=== PATIENT | female | born 1945 | race Caucasian/White ===

== ENCOUNTER → 2018-05-26 | Outpatient (CLI) | payer MEDICARE | LOC: M SLEEP 19:35 | DX: G47.30 Sleep apnea, unspecified (principal) | CPT/HCPCS: 95810 ==

== ENCOUNTER → 2018-06-19 | Outpatient (CLI) | payer MEDICARE | LOC: M SLEEP 19:02 | DX: G47.33 Obstructive sleep apnea (adult) (pediatric) (principal) | CPT/HCPCS: 95811 ==

== ENCOUNTER → 2019-05-07 | Outpatient (CLI) | payer MEDICARE ==
[~2019-05-07] MED LIST: LIDOCAINE 1% MDV 20ML VIAL As Ordered ONE
--- NOTE | 2019-05-07 13:18 | REP ---
POSTBIOPSY MAMMOGRAM, LEFT BREAST: Following stereotactic biopsy of the left breast at two locations for clustered microcalcifications, one medially and one laterally, ML and CC views of the left breast are performed to evaluate clip placement. A metallic marking clip is seen at the site of each cluster of microcalcifications. At both sites, multiple calcifications are no longer visualized. Electronically Signed by Dannie Zamudio MD 05/07/2019 05:16 P
--- NOTE | 2019-05-07 17:18 | REP ---
Stereotactic breast biopsy. This procedure is performed by OCTAVIANO Su, under the personal supervision of Dr. Zamudio. The patient has a history of suspicious grouping of microcalcifications in the left breast in two separate locations, one medially and one laterally, on an outside mammogram dated 03/25/2019. The risks and benefits of the procedure were explained to the patient and informed consent was obtained both verbally and written. Directly prior to the start of the procedure, a formal timeout was done in the procedure room. The cranial caudal approach was utilized. The lateral grouping of calcifications were localized using stereotactic mammographic guidance. 6 ml of 1% lidocaine was used as a local anesthetic. And 8-gauge, suction assisted Mammotome needle was inserted and 6 core biopsy samples were obtained. Specimen radiograph demonstrate the presence of microcalcifications to be within the specimen. A marker clip was placed at the biopsy site. The needle was removed and homeostasis was achieved. The patient tolerated the procedure well and there were no immediate complications. After the appropriate amount of monitored convalescence, the patient was discharged from the department. Impression: Technically successful stereotactic breast biopsy of the left breast, lateral grouping of microcalcifications. Reviewed by OCTAVIANO Harley 05/07/2019 01:52 P Electronically Signed by Dannie Zamudio MD 05/07/2019 05:11 P
--- NOTE | 2019-05-07 17:20 | REP ---
Stereotactic breast biopsy. This procedure is performed by OCTAVIANO Su, under the personal supervision of Dr. Zamudio. The patient has a history of suspicious grouping of microcalcifications in the left breast in two separate locations, one medially and one laterally, on an outside mammogram dated 03/25/2019. The risks and benefits of the procedure were explained to the patient and informed consent was obtained both verbally and written. Directly prior to the start of the procedure, a formal timeout was done in the procedure room. The cranial caudal approach was utilized. The medial calcifications were localized using stereotactic mammographic guidance. 6 ml of 1% lidocaine was used as a local anesthetic. And 8-gauge, suction assisted Mammotome needle was inserted and 6 core biopsy samples were obtained. Specimen radiograph demonstrate the presence of microcalcifications to be within the specimen. A marker clip was placed at the biopsy site. The needle was removed and homeostasis was achieved. The patient tolerated the procedure well and there were no immediate complications. After the appropriate amount of monitored convalescence, the patient was discharged from the department. Impression: Technically successful stereotactic breast biopsy of the left breast, medial grouping of microcalcifications. Reviewed by OCTAVIANO Harley 05/07/2019 01:49 P Electronically Signed by Dannie Zmaudio MD 05/07/2019 05:12 P
--- NOTE | 2019-05-12 13:56 | REP ---
SPECIMEN RADIOGRAPHY LEFT BREAST: Single view. HISTORY: Patient status post stereotactic needle biopsy for microcalcifications. Comparison mammography March 25, 2019. FINDINGS: Specimen radiography confirms the presence of microcalcifications from the target grouping in one of the removed specimens. IMPRESSION: Specimen radiography confirms removal of microcalcifications from the target specimen. Electronically Signed by Aguilar Ferguson MD 05/12/2019 03:51 P
== END ==
LOC: M RADPRO 10:13
PROVIDERS: ATTEND Surgery
DX: D24.2 Benign neoplasm of left breast (principal)

== ENCOUNTER → 2021-09-26 | Outpatient (CLI) | payer MEDICARE ==
[~2021-09-26] MED LIST changes: +ALDA25TA2 PO; +DULO1CAP4 PO; +ECOT81TA5 PO; +FURO40TA2 PO; +HYDR10TAB PO; +K-TA10TA2 PO; +LEVO125T4 PO; -LIDOCAINE 1% MDV 20ML VIAL As Ordered ONE; +METF500T13 PO; +SIMV20TA22 PO
[2021-09-26 15:02] VITALS: BP 150/74
--- NOTE | 2021-09-26 15:12 | REP ---
INDICATION: U/S GUIDED BX LUMP IN RIGHT BREAST. POST CLIP MAMMO. COMPARISON: 08/14/2021, 08/25/2021. TECHNIQUE: ML and CC views right breast performed with tomosynthesis. FINDINGS: HydroMARK clip is noted at the site of the spiculated nodule in the lower outer right breast following ultrasound-guided biopsy. IMPRESSION: Successful ultrasound-guided biopsy of nodule lower outer right breast with appropriate placement of HydroMARK clip at that location. RECOMMENDATION: Clinical follow-up. <Electronically signed by Dannie Zamudio > 09/26/21 [id number]
--- NOTE | 2021-09-27 17:19 | REP ---
INDICATION: U/S GUIDED BX LUMP IN RIGHT BREAST. POST CLIP MAMMO. COMPARISON: None. TECHNIQUE: The procedure was performed under the direct supervision of Dr. Zamudio. The patient has a history of a hypoechoic shadowing area at the 8 o'clock position of the right breast seen on a previous ultrasound dated 08/25/2021 from [facility]. The risks and benefits of the procedure were explained to the patient and informed consent was obtained. The right breast nodule was localized using ultrasound guidance. The skin was prepped and draped in a sterile fashion. 9 mL of 1% Xylocaine was used as a local anesthetic. Using ultrasound guidance a 14-gauge coaxial needle biopsy system was inserted and6 core biopsy samples were obtained. A marker clip (HydroMark shape 4) was placed at the biopsy site The patient tolerated the procedure well and there were no immediate complications. After the appropriate amount of monitored convalescence, the patient was discharged from the department. EBL: Less than 1 mL FINDINGS: None IMPRESSION: Ultrasound-guided right breast biopsy with marker clip placement. (HydroMark shape 4) <Electronically signed by Dru Beatty > 09/27/21 [id number] <Electronically signed by Dannie Zamudio > 09/27/21 1350
== END ==
LOC: M WHCPRO 08:56
PROVIDERS: ATTEND Family Medicine
DX: C50.511 Malignant neoplasm of lower-outer quadrant of right female breast (principal)

== ENCOUNTER → 2021-10-18 | Outpatient (CLI) | payer MEDICARE ==
[~2021-10-18] MED LIST changes: +AMLO1TAB25 PO; +AMOX875T2 PO; +ARIM1TAB5 PO; +ASPI1CHW3 PO; +D 101000 PO; +DULO1CAP5 PO; +LIDO1CRE42 TOP; +METO1TAB7 PO; +PROL60SO SC; +ROXI1TAB2 PO; +TOUJ1.2I SC
== END ==
LOC: M PLALAB 09:25
PROVIDERS: ATTEND Surgery
DX: Z13.79 Encounter for other screening for genetic and chromosomal anomalies (principal)

== ENCOUNTER → 2021-10-18 | Outpatient (CLI) | payer MEDICARE ==
[2021-10-18 09:01] VITALS: BP 136/84
== END ==
LOC: M WHCPRO 06:43
PROVIDERS: ATTEND Surgery
DX: D24.2 Benign neoplasm of left breast (principal); N63.22 Unspecified lump in the left breast, upper inner quadrant
CPT/HCPCS: 19083; 77065; 88305; G0279

== ENCOUNTER → 2021-10-26 | Outpatient (CLI) | payer MEDICARE ==
[~2021-10-26] MED LIST changes: -ARIM1TAB5 PO; -ASPI1CHW3 PO; -DULO1CAP5 PO; -LIDO1CRE42 TOP; -PROL60SO SC; -ROXI1TAB2 PO
== END ==
LOC: M LABSMTC 10:58
PROVIDERS: ATTEND Anesthesiology
DX: Z01.812 Encounter for preprocedural laboratory examination (principal); Z20.822 Contact with and (suspected) exposure to COVID-19

== ENCOUNTER 2021-10-31 08:19 | Day surgery (SDC) | payer MEDICARE ==
[~2021-10-31] VITALS: Ht 154.9 cm; Wt 74.8 kg
[~2021-10-31 08:19] MED LIST changes: +HEPARIN SOD (PORCINE) 5000UNITS/ML 1ML VIAL/SYRINGE SQ ONE; +LIDOCAINE 1% MDV 20ML VIAL SQ PRN; +LR 1,000 ML IV ONE; +ceFAZolin SOD 2 GM in IV 1 EA IV ONE
[2021-10-31] MEDS ORDERED: LIDOCAINE 2% 100MG/5ML SDV (FOR ANES.) As Ordered ONE (10:56)
[2021-10-31] MEDS ORDERED: propofoL 200 MG/20 ML VIAL As Ordered ONE (10:56)
[2021-10-31] MEDS ORDERED: fentaNYL 100 MCG/2 ML INJECTION As Ordered ONE (10:59)
[2021-10-31] MEDS ORDERED: MIDAZOLAM INJ 2MG/2ML VIAL (J2250 PER 1MG) As Ordered ONE (10:59)
[2021-10-31] MEDS ORDERED: ePHEDrine SULFATE 25 MG/5 ML(5MG/ML) SYRINGE As Ordered ONE ×2 (11:14→14:43)
[2021-10-31] MEDS ORDERED: ROCURONIUM BROMIDE 50 MG/5 ML VIAL As Ordered ONE ×2 (11:16→14:03)
[2021-10-31] MEDS ORDERED: LIDOCAINE 1% SDV 30ML VIAL As Ordered ONE (13:36)
[2021-10-31] MEDS ORDERED: BUPIVACAINE HCL 0.25% 30ML VIAL As Ordered ONE (13:36)
[2021-10-31] MEDS ORDERED: ACETAMINOPHEN 1000MG 100ML IV BTL (OFIRMEV) (J0131 PER 10MG) As Ordered ONE (14:20)
[2021-10-31] MEDS ORDERED: SUGAMMADEX SODIUM 500 MG/5 ML VIAL (BRIDION) As Ordered ONE (14:31)
[2021-10-31] MEDS ORDERED: dexameTHASONE 4 MG/ML 1ML VIAL (J1100 PER 1MG) As Ordered ONE (14:42)
[2021-10-31] MEDS ORDERED: PHENYLephrine 500MCG 5ML (100MCG/ML) SYRINGE As Ordered ONE (15:01)
[2021-10-31] MEDS ORDERED: ONDANSETRON 4MG/2ML VIAL As Ordered ONE (15:01)
[2021-10-31] MEDS ORDERED: LACRILUBE (AKWA TEARS) OPHTH OINT 3.5 GM As Ordered ONE (15:31)
[2021-10-31] MEDS ORDERED: ROXI1TAB2 PO (17:14)
[2021-10-31] MEDS ORDERED: fentaNYL 100 MCG/2 ML INJECTION IV PRN (17:40)
[2021-10-31] MEDS ORDERED: LR 1,000 ML IV SCH (17:40)
[2021-10-31] MEDS ORDERED: ONDANSETRON 4MG/2ML VIAL IV PRN (17:40)
[2021-10-31] MEDS ORDERED: NORCO, ANEXSIA 5/325MG TABLET (HYDROcodone/ACETAMINOPHEN) PO PRN (17:40)
[2021-10-31] MEDS ORDERED: METOCLOPRAMIDE INJ 10MG/2ML VIAL (J2765 PER 1) IV PRN (17:40)
[2021-10-31 18:49] VITALS: BP 127/59
[2021-11-16] MEDS ORDERED: ASPI1CHW3 PO (14:15)
[2021-11-16] MEDS ORDERED: LIDO1CRE42 TOP (14:15)
[2021-11-21] MEDS ORDERED: DULO1CAP5 PO (13:25)
[2021-12-18] MEDS ORDERED: ARIM1TAB5 PO (14:07)
[2021-12-18] MEDS ORDERED: PROL60SO SC (14:08)
== END 2021-10-31 19:51 | disposition home or self-care (01) ==
LOC: M SDC 08:19
PROVIDERS: ATTEND Surgery
DX: D05.11 Intraductal carcinoma in situ of right breast (principal); C50.911 Malignant neoplasm of unspecified site of right female breast; N39.0 Urinary tract infection, site not specified; D72.829 Elevated white blood cell count, unspecified; I10 Essential (primary) hypertension; E78.00 Pure hypercholesterolemia, unspecified; E11.9 Type 2 diabetes mellitus without complications; E03.9 Hypothyroidism, unspecified; M54.9 Dorsalgia, unspecified; G47.30 Sleep apnea, unspecified; R06.83 Snoring; Z88.2 Allergy status to sulfonamides; Z79.899 Other long term (current) drug therapy; Z79.2 Long term (current) use of antibiotics; Z79.84 Long term (current) use of oral hypoglycemic drugs; Z79.4 Long term (current) use of insulin
CPT/HCPCS: 19125; 36415; 38525; 76942; 78195; 86850; 86900; 86901; 88305; 88307; J0131; J0690; J1100; J2250; J2370; J2405; J3010

== ENCOUNTER → 2021-11-29 | Outpatient (CLI) | payer MEDICARE ==
[~2021-11-29] MED LIST changes: +ASPI1CHW3 PO; +DULO1CAP5 PO; -HEPARIN SOD (PORCINE) 5000UNITS/ML 1ML VIAL/SYRINGE SQ ONE; +LIDO1CRE42 TOP; -LIDOCAINE 1% MDV 20ML VIAL SQ PRN; -LR 1,000 ML IV ONE; +ROXI1TAB2 PO; -ceFAZolin SOD 2 GM in IV 1 EA IV ONE
== END ==
LOC: M WHC 09:30
PROVIDERS: ATTEND Internal Medicine Hematology & Oncology
DX: Z13.820 Encounter for screening for osteoporosis (principal); Z51.81 Encounter for therapeutic drug level monitoring; Z79.899 Other long term (current) drug therapy; Z88.2 Allergy status to sulfonamides; M85.88 Other specified disorders of bone density and structure, other site; M85.851 Other specified disorders of bone density and structure, right thigh; M85.852 Other specified disorders of bone density and structure, left thigh

== ENCOUNTER → 2022-04-18 | Outpatient (CLI) | payer MEDICARE ==
[~2022-04-18] MED LIST changes: +ARIM1TAB5 PO; +PROL60SO SC; +VIT1TABL22 PO
== END ==
LOC: M WHC 08:43
PROVIDERS: ATTEND Surgery
DX: N63.20 Unspecified lump in the left breast, unspecified quadrant (principal); R92.8 Other abnormal and inconclusive findings on diagnostic imaging of breast

== ENCOUNTER → 2022-08-16 | Outpatient (CLI) | payer MEDICARE ==
[~2022-08-16] MED LIST changes: +HEAL1TAB2 PO
== END ==
LOC: M WHC 08:44
PROVIDERS: ATTEND Surgery
DX: C50.919 Malignant neoplasm of unspecified site of unspecified female breast (principal)
CPT/HCPCS: 77066; G0279

== ENCOUNTER → 2023-03-25 | Outpatient (CLI) | payer MEDICARE ==
[~2023-03-25] MED LIST changes: +ALEN70TA82; +ASPI-655 PO; -ASPI1CHW3 PO
== END ==
LOC: M WHC 13:56
PROVIDERS: ATTEND Nurse Practitioner
DX: N64.4 Mastodynia (principal); C50.911 Malignant neoplasm of unspecified site of right female breast

== ENCOUNTER → 2024-08-25 | Outpatient (CLI) | payer MEDICARE ==
[~2024-08-25] MED LIST changes: +HYDR-161 PO; -HYDR10TAB PO; +HYDR25TA87 PO; -K-TA10TA2 PO; -LIDO1CRE42 TOP; +LIDO30CR18 TOP; +MULTIVITAMIN PO; +POTA-165 PO; +SPIR-10 PO
== END ==
LOC: M WHC 10:20
PROVIDERS: ATTEND Specialist
DX: C50.919 Malignant neoplasm of unspecified site of unspecified female breast (principal); R92.323 Mammographic fibroglandular density, bilateral breasts
CPT/HCPCS: 77066; G0279

== ENCOUNTER → 2025-09-01 | Outpatient (CLI) | payer MEDICARE ==
[~2025-09-01] MED LIST changes: -ASPI-655 PO; +ASPI-737 PO; +ASPI81CH33 PO; +DENO60SY2 SC; +GNPCAP19 PO; -PROL60SO SC
== END ==
LOC: M WHC 13:00
DX: C50.919 Malignant neoplasm of unspecified site of unspecified female breast (principal); M81.0 Age-related osteoporosis without current pathological fracture

== ENCOUNTER → 2025-09-01 | Outpatient (CLI) | payer MEDICARE | LOC: M WHC 12:10 | PROVIDERS: ATTEND Internal Medicine Medical Oncology | DX: Z12.31 Encounter for screening mammogram for malignant neoplasm of breast (principal); R92.323 Mammographic fibroglandular density, bilateral breasts ==